=== PATIENT | female | born 1950 | race Caucasian/White ===

== ENCOUNTER 2020-01-06 16:15 | Emergency (ER) | payer MEDICARE, SELFPAY ==
--- NOTE | ~2020-01-06 | XR_ITS ---
EXAMINATION: XR wrist RT min 3V EXAM DATE: 01/06/2020 16:58 INDICATION: Initial encounter following injury, with pain of the right wrist. TECHNIQUE: Right wrist frontal, frontal with ulnar deviation, oblique and lateral projections obtain ed and reviewed. There is no prior study for comparison. FINDINGS: Right wrist scapholunate joint space is maintained. 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 There are no acute fractures or dislocations identified. There is no subcutaneous gas. The soft tissue is unremarkable. There are no radiopaque foreign bodies. IMPRESSION: No acute osseous findings. Reviewed, dictated and finalized at location A. IMPRESSION: No acute osseous findings.
[2020-01-06 16:30] VITALS: BP 158/68; PULSE 72; RESP 20; TEMP 36.9; O2SAT 98
--- NOTE | 2020-01-06 16:46 | ED.UPPEXIN ---
HPI - Extremity Injury (Upper) General Chief Complaint: Extremity Injury, Upper Stated Complaint: injured right wrist Time Seen by Provider: 01/06/20 16:47 Source: patient Mode of arrival: ambulatory Limitations: no limitations History of Present Illness HPI narrative: Cricket Erickson is a 69 yo female with a PMH of HTN, high cholesterol, insomnia, GERD, who comes here for R wrist pain and swelling after falling over pallet at store yesterday. Pain with movement, minimal swelling Related Data Home Medications Medication Instructions Recorded Confirmed amlodipine 10 mg PO DAILY 01/06/20 01/06/20 aspirin [Adult Low Dose Aspirin] 81 mg PO DAILY 01/06/20 01/06/20 calcium carbonate [Tums] 200 mg PO BID 01/06/20 01/06/20 cetirizine 10 mg PO DAILY 01/06/20 01/06/20 aauopsqteblt-xdd-ohkn-FA-vit K 1 tablet PO DAILY 01/06/20 01/06/20 [Adults Multivitamin] naproxen sodium 220 mg PO BID PRN 01/06/20 01/06/20 pravastatin 40 mg PO DAILY 01/06/20 01/06/20 Allergies Allergy/AdvReac Type Severity Reaction Status Date / Time No Known Allergies Allergy Verified 01/06/20 16:40 Review of Systems Review of Systems: Narrative: CONSTITUTIONAL: Denies fever, chills, sweats. EYES: Denies visual changes, redness, discharge. ENT: Denies rhinorrhea, congestion, sore throat, otalgia. CARDIOVASCULAR: Denies chest pain, palpitations, edema. RESPIRATORY: Denies dyspnea, wheezing, cough GASTROINTESTINAL: Denies abdominal pain, nausea, vomiting, diarrhea. GENITOURINARY: Denies dysuria, hematuria, abnormal discharge SKIN: Denies rash or itching. NEUROLOGIC: Denies numbness, or focal weakness. PSYCHIATRIC: Denies anxiety or depression. R wrist and hand pain PMFSH Family History Family History (Updated 01/06/20 @ 17:03 by Adriane Martinez CNP) Other High cholesterol Hypertension Social History Social History Smoking status: Never smoker Alcohol intake: never Comments At time of signature, I agree with nursing past medical, surgical, social and family history. There is no relevant family history pertinent to the presenting complaint. Exam Narrative: Exam Narrative: GENERAL: This is a well-nourished, well-developed patient, in mild distress. HEAD: normocephalic, atraumatic. EYES: Sclera clear/white. Vision is grossly intact. EARS: External ears normal. Hearing grossly intact. NOSE: External nose normal without nasal discharge, nares without redness, no rhinorrhea. THROAT: Mucous membranes moist, NECK: Neck supple, CARDIOVASCULAR: Regular rate and rhythm without murmurs, gallops, or rubs. RESPIRATORY: Clear to auscultation. Breath sounds equal bilaterally. No wheezes, rales, or rhonchi. GASTROINTESTINAL: Abdomen soft, SKIN: warm, intact .minor bruis palmar side finger 3,4 NEURO: awake, alert, and oriented to person, place and time. There were no obvious focal neurologic abnormalities. Steady gait EXTREMITIES: R arm- pain with flexion of wrist, or with supination. Good finger opposition, 2 + pulse, minimal swelling BACK: Nontender without deformity Course Course Emergency Course: Xray R wrist neg- yogesh wrap to wrist- use RICE Vital Signs Vital signs: Vital Signs Temperature 98.5 F 01/06/20 16:30 Pulse Rate 72 01/06/20 16:30 Respiratory Rate 20 01/06/20 16:30 Blood Pressure 158/68 H 01/06/20 16:30 Pulse Oximetry 98 01/06/20 16:30 Temperature 98.5 F 01/06/20 16:30 Pulse Rate 72 01/06/20 16:30 Respiratory Rate 20 01/06/20 16:30 Blood Pressure 158/68 H 01/06/20 16:30 Pulse Oximetry 98 01/06/20 16:30 Discharge Plan Discharge Patient Disposition: Home, Self-Care Condition: Stable Instructions: Wrist Injury (ED), R.I.C.E. Treatment (ED) Prescriptions: No Action pravastatin 40 mg Tablet 40 mg PO DAILY RF: 0 aspirin [Adult Low Dose Aspirin] 81 mg Tablet,Delayed Release (Dr/Ec) 81 mg PO DAILY RF: 0 amlodipine 10
== END 2020-01-06 17:13 | disposition home or self-care (01) ==
PROVIDERS: Emergency Provider Nurse Practitioner
DX: S63.501A Unspecified sprain of right wrist, initial encounter (principal); I10 Essential (primary) hypertension; K21.9 Gastro-esophageal reflux disease without esophagitis; E78.00 Pure hypercholesterolemia, unspecified; Z79.82 Long term (current) use of aspirin; W18.09XA Striking against other object with subsequent fall, initial encounter
CPT/HCPCS: 73110; 99213; G0463

== ENCOUNTER 2020-12-12 16:26 | Emergency (ER) | payer MEDICARE, SELFPAY ==
[2020-12-12 16:35] VITALS: BP 189/70; PULSE 82; RESP 18; TEMP 37.1; O2SAT 99
--- NOTE | 2020-12-12 16:43 | ED.EAR ---
HPI - Ear Problem General Chief complaint: Ear Stated complaint: ear inf Time Seen by Provider: 12/12/20 16:43 Source: patient and RN notes reviewed Mode of arrival: ambulatory Limitations: no limitations History of Present Illness HPI Narrative: 70 year old female presents to [facility] care with complaints of left ear pain for about a week which goes to her left neck and teeth which has increased in intensity today. Patient denies any sore throat, cough, shortness of breath at rest or with exertion, sinus pressure or any headache pain. Patient denies being around any sick contacts. She states that she has taken some Aleve for her discomfort. MD Complaint: ear pain Location: left ear Severity: moderate Discharge from ear: Reports no Treatment prior to arrival: oral analgesic Related Data Home Medications Medication Instructions Recorded Confirmed amlodipine 10 mg PO DAILY 01/06/20 12/12/20 aspirin [Adult Low Dose Aspirin] 81 mg PO DAILY 01/06/20 12/12/20 calcium carbonate [Tums] 200 mg PO BID 01/06/20 12/12/20 cetirizine 10 mg PO DAILY 01/06/20 12/12/20 dfdpcfqhbbdu-owf-talz-FA-vit K 1 tablet PO DAILY 01/06/20 12/12/20 [Adults Multivitamin] pravastatin 40 mg PO DAILY 01/06/20 12/12/20 trazodone 50 mg PO HS 12/12/20 12/12/20 Allergies Allergy/AdvReac Type Severity Reaction Status Date / Time No Known Allergies Allergy Verified 12/12/20 16:41 Review of Systems Review of Systems: Narrative: CONSTITUTIONAL: Denies fever, chills, or sweats. EYES: Denies visual changes, redness, or discharge. ENT: Denies rhinorrhea, congestion, sore throat, positive left ear otalgia radiating to left neck and teeth CARDIOVASCULAR: Denies chest pain, palpitations, or edema. RESPIRATORY: Denies cough or dyspnea. GASTROINTESTINAL: Denies abdominal pain, nausea, vomiting, or diarrhea. GENITOURINARY: Denies dysuria or hematuria. SKIN: Denies rash or itching. MUSCULOSKELETAL: Denies back pain, joint pain, or myalgia. NEUROLOGIC: Denies headache, numbness, or weakness. PSYCHIATRIC: Denies anxiety or depression. All systems reviewed & are unremarkable except as noted in HPI and below PMFSH Past Medical History Medical History (Updated 12/13/20 @ 00:01 by Angus Garcia) GERD (gastroesophageal reflux disease) High cholesterol HTN (hypertension) Surgical History Surgical History (Updated 12/14/20 @ 08:51 by Jaimee Jordan NP) No pertinent past surgical history Family History Family History Other High cholesterol Hypertension Social History Social History (Updated 12/14/20 @ 08:52 by Jaimee Jordan NP) Smoking status: Never smoker Alcohol intake: never Substance use: never Living arrangements: with family Gender identity (if verbalized by the patient): Female Comments At time of signature, agree with nursing past medical, surgical, social and family history. There is no relevant family history pertinent to the presenting complaint Exam Narrative: Exam Narrative: GENERAL: Well-appearing, well-nourished, and in no acute distress. HEAD: Normocephalic, atraumatic. EYES: PERRLA and EOMI. ENT: Nares red and swollen with clear rhinorrhea no epistaxis. Mucous membranes moist. Left ear red with light reflex dull, right ear normal with good light reflex, throat red with no lesions or exudates, no tonsil enlargement, some post nasal drainage present. NECK: Supple.no lymphadenopathy CHEST: Clear to auscultation. No respiratory distress.SAO2 99% on room air HEART: Regular rate and rhythm. No murmur heard. Normal peripheral pulses. ABDOMEN: Soft, nontender, nondistended, normal active bowel sounds. EXTREMITIES: Normal range of motion. No edema. SKIN: Warm, dry, no rash. NEURO: No focal deficits. Alert and oriented x3. Course Vital Signs Vital signs: Vital Signs Temperature 37.1 C 12/12/20 16:35 Pulse Rate 82 12/12/20 16:35 Respiratory Rate 18 0
== END 2020-12-12 17:02 | disposition home or self-care (01) ==
PROVIDERS: Emergency Provider Registered Nurse
DX: H66.92 Otitis media, unspecified, left ear (principal); K21.9 Gastro-esophageal reflux disease without esophagitis; E78.00 Pure hypercholesterolemia, unspecified; I10 Essential (primary) hypertension; Z79.82 Long term (current) use of aspirin
CPT/HCPCS: 99213; G0463